=== PATIENT | female | born 1995 ===

== ENCOUNTER 2020-07-14 15:53 | Emergency (ER) | payer SELFPAY | END 2020-07-14 19:00 | disposition left against medical advice (07) | LOC: ED 15:53 | DX: M79.10 Myalgia, unspecified site (principal); Z53.21 Procedure and treatment not carried out due to patient leaving prior to being seen by health care provider; V49.69XA Unspecified car occupant injured in collision with other motor vehicles in traffic accident, initial encounter; Y93.89 Activity, other specified; Y92.488 Other paved roadways as the place of occurrence of the external cause; Y99.8 Other external cause status ==